=== PATIENT | male | born 1930 | race Caucasian/White ===

== ENCOUNTER 2019-03-25 08:39 | Observation (INO) | payer MEDICARE ==
[~2019-03-25] VITALS: Ht 180.3 cm; Wt 79.4 kg
--- NOTE | 2019-03-25 08:42 | NUR ---
PT ARRIVED INTO ER ROOM 3 VIA [facility]. PT PLACED ON CONTACT ISOLATION FOR C-DIF. PT IS AWAKE AND ALERT, FOLLOWS COMMMANDS. NON-VERBAL BUT HE ANSWERS SOME QUESTIONS APPROPRIATELY BY NODDING OR IF YOU CAN READ HIS LIPS. HE IS ORIENTED X 1-2. HE MOUTHS HIS NAME AND SEEMS TO KNOW THAT HE IS AT THE HOSPITAL. 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 RIGHT ARM SEVERELY CONTRACTED AND 4+ PITTING EDEMA. BILATERAL UE PITTING EDEMA AND BILATERL FEET EDEMA. MULTIPLE WOUNDS NOTED ALL OVER BODY ON ARRIVAL AND SEVERAL DRESSINGS ALL OVER BODY. SKIN TEAR ACROSS MID-UPPER BACK, LARGE SKIN TEAR TO LEFT UPPER ARM THAT HAS A 4X4 DRESSING ON IT. MULTIPLE BRUISES TO ENTIRE BODY AND SEVERAL OTHER SKIN TEARS NOTED TO BOTH ARMS. PT BRUISES VERY EASILY. HIS SKIN IS PAPER THIN AND JUST THE SLIGHTEST TOUCH BRUISES HIM. THERE IS AN ULCER ON THE SACRUM COVERED WITH AN ABD PAD AND TAPE. NOT SURE IF IT IS STAGEABLE OR NOT. I WOULD SAY STAGE II BUT IT HAS YELLOW SLOUGH AND HAS A SMALL AMT OF YELLOWISH DRAINAGE. WILL SPEAK WITH ERP ABOUT NEED FOR WOUND CARE CONSULT.
--- NOTE | 2019-03-25 09:00 | NUR ---
UNABLE TO OBTAIN A TEMP BY ANY METHOD RIGHT NOW. TRIED ORAL, AXILLARY AND RECTAL. NONE WOULD GIVE A READING
[2019-03-25] MEDS ORDERED: SODIUM CHLORIDE 0.9% 1000ML 1,000 ML IV STA (09:33)
[2019-03-25] MEDS ORDERED: PANTOPRAZOLE 40 MG 10ML VIAL IV STA (09:33)
--- NOTE | 2019-03-25 11:15 | NUR ---
CT BROUGHT A SPORTS BOTTLE OF WATER AND ASKED ME TO GIVE AT LEAST HALF OF IT THROUGH THE PEG TUBE. I DID
--- NOTE | 2019-03-25 11:50 | NUR ---
CALLED RESP TO COME TRY TO OBTAIN A SPUTUM SAMPLE AND CHECK THE TRACH COLLAR AND OXYGEN
--- NOTE | 2019-03-25 12:00 | NUR ---
I WAS ABLE TO OBTAIN A VERY SMALL AMT OF STOOL AND RESP WAS ABLE TO OBTAIN A VERY SMALL AMOUNT OF SPUTUM FROM THE TRACH. I WILL SEND THEM BOTH TO LAB BUT NOT SURE IF EITHER IS A SUFFICIENT SAMPLE
--- NOTE | 2019-03-25 12:05 | NUR ---
CHECKED RECTAL TEMP X 3,
[2019-03-25 12:10] LABS: HEMATOCRIT 22.5 % (38.2-49.6); HEMOGLOBIN 7.5 g/dL (14.0-18.0); LYMPHOCYTES # (AUTO) 0.4 (1.0-3.2); MEAN CORPUSCULAR HEMOGLOBIN 30.9 pg (28-32); MEAN CORPUSCULAR HGB CONC 33.3 g/dL (31-35); MEAN CORPUSCULAR VOLUME 92.6 fL (81-99); MONOCYTES # (AUTO) 0.4 (0.2-0.8); MONOCYTES % 5.6 % (4.4-11.3); NEUTROPHILS # (AUTO) 6.4 (2.1-6.9); NEUTROPHILS % 87.2 % (38.7-80.0); PLATELET COUNT 85 x10e3/uL (140-360); RED BLOOD COUNT 2.43 x10e6/uL (4.3-5.7); RED CELL DISTRIBUTION WIDTH 21.5 % (11.7-14.4)
--- NOTE | 2019-03-25 12:15 | NUR ---
I NOTIFIED DR. AMBRIZ AT THE NURSES STATION THAT I WAS FINALLY ABLE TO OBTAIN A RECTAL TEMP. IT WAS LOW SO I RECHECKED IT 2 MORE TIMES TO MAKE SURE IT WAS ACCURATE. 3 READINGS WERE 89.3, 91.7, AND 90.8. EVER SINCE THE PATIENT ARRIVED I HAD BEEN UNABLE TO OBTAIN A TEMP BY ANY METHOD. I HAD TRIED NUMEROUS TIMES ORAL, AXILLARY, AND RECTAL BUT COULDNT EVER GET A READING. I ADDED MORE WARM BLANKETS
[2019-03-25 12:32] LABS: ALBUMIN 1.4 g/dL (3.5-5.0); ALBUMIN/GLOBULIN RATIO 0.5 (0.8-2.0); ANION GAP 13.1 mmol/L (8-16); CALCIUM 7.9 mg/dL (8.4-10.2); CREATININE, SERUM 2.43 mg/dL (0.72-1.25); POTASSIUM 5.1 mmol/L (3.5-5.1)
[2019-03-25] MEDS ORDERED: SODIUM CHLORIDE 0.9% 1000ML 1,000 ML ONE (12:34)
[2019-03-25] MEDS ORDERED: SODIUM CHLORIDE 0.9% 250ML 250 ML IV ONE (13:15)
--- NOTE | 2019-03-25 13:15 | NUR ---
SPOKE WITH SEED LABORATORY TECHNICIAN ABOUT POSSIBLY MOVING PT FROM ROOM 3 TO ROOM 5 BECAUSE HIS BLOOD PRESSURES ARE DROPPING AND HE IS HYPOTHERMIC. SHE SAID TO JUST LEAVE HIM WHERE HE IS FOR NOW AND APPLY TANJA HUGGER BLANKET AND CLOSELY MONITOR HIM FOR NOW TO SEE HOW HE DOES.
--- NOTE | 2019-03-25 14:16 | NUR ---
PATIENTS SON ARRIVED TO BEDSIDE. TOLD HIS FATHER HE IS WORKING ON GETTING HIM INTO HOME HOSPICE. TEMP 91.3 RECTAL. PLACED ON WARMING BLANKET
--- NOTE | 2019-03-25 14:33 | NUR ---
CONSULT FOR CASE MANAGEMENT COMPLETED. PATIENTS SON WANTS HIS FATHER TO GO HOME ON HOME HOSPICE
[2019-03-25] MEDS ORDERED: PANTOPRAZOLE 40 MG 10ML VIAL IV SCH (15:00)
[2019-03-25 15:04] LABS: BAND NEUTROPHILS % (MANUAL) 21 %; LYMPHOCYTES % (MANUAL) 5 % (19-48); MONOCYTES % (MANUAL) 3 % (3.4-9.0); NEUTROPHILS % (MANUAL) 71 % (40-74)
--- NOTE | 2019-03-25 15:15 | NUR ---
THE BLOOD HAS BEEN READY FOR TRANSFUSION BUT PATIENT HASN'T HAD A LINE TO TRANSFUSE. DR. AMBRIZ AT BEDSIDE NOW ATTEMPTING TO PLACE AN EJ
--- NOTE | 2019-03-25 15:30 | NUR ---
Morteza hdz in ED - 03/25/[address] AMBRIZ UNABLE TO OBTAIN THE EJ. PLAN NOW IS FOR CVC
--- NOTE | 2019-03-25 15:45 | NUR ---
OBTAINED CONSENT FROM SON FOR CVC AND BLOOD TRANSFUSION
--- NOTE | 2019-03-25 15:50 | NUR ---
Morteza hdz in EDM - 03/25/[address] AMBRIZ WAS UNSUCCESSFUL WITH EJ IV SO SHE JUST PLACED A RIGHT FEMORAL TRIPLE LUMEN CVC. FAMILY REMAIN AT BEDSIDE NOW
--- NOTE | 2019-03-25 16:10 | NUR ---
CORRECTION: CENTRAL LINE NOT PLACED YET. DR. AMBRIZ IS IN THE ROOM NOW PREPARING TO PLACE IT. I OBTAINED THE CONSENT FOR THE LINE.
--- NOTE | 2019-03-25 17:10 | NUR ---
AFTER AN HOUR AND WITH ULTRASOUND GUIDANCE MD WAS ABLE TO GET THE CENTRAL LINE PLACED TO THE RIGHT IJ. IT IS A TRIPLE LUMEN. DRESSING PLACED AND XRAY ORDERED.
[2019-03-25] MEDS ORDERED: SODIUM CHLORIDE 0.9% 250ML 250 ML ONE (17:24)
[2019-03-25] MEDS ORDERED: SODIUM CHLORIDE 0.9% 500ML 500 ML IV ONE (17:47)
--- NOTE | 2019-03-25 17:47 | NUR ---
NOTIFIED DR AMBRIZ BP 65/42, P 114 VERBAL ORDER: 500ML NS BOLUS ORDERED AT THIS TIME.
[2019-03-25] MEDS ORDERED: SODIUM CHLORIDE 0.9% 500ML 500 ML ONE (17:48)
--- NOTE | 2019-03-25 17:48 | NUR ---
OK TO USE CENTRAL LINE PER DR AMBRIZ.
--- NOTE | 2019-03-25 17:58 | Diagnostic Imaging Report ---
EXAMINATION: CHEST SINGLE (PORTABLE) INDICATION: ^CENTRAL LINE PLACEMENT COMPARISON: None FINDINGS: AP view TUBES and LINES: Interval placement of a right IJ central venous catheter. The tip appears to overlying the lower SVC on limited evaluation. Unchanged tracheostomy tube. LUNGS: Suboptimal evaluation of the lungs due to extreme rotation. Partial collapse of the right lung. Subsegmental atelectasis in the left lower lobe. PLEURA: There appears to be a moderate size right pneumothorax. Difficult to evaluate pneumothorax on the left. HEART AND MEDIASTINUM: The cardiomediastinal silhouette is unremarkable. BONES AND SOFT TISSUES: No acute osseous lesion. No subcutaneous air. UPPER ABDOMEN: No free air under the diaphragm. IMPRESSION: Interval placement of a right adjacent to venous catheter which is difficult to evaluate the location of the tip may be overlying the lower SVC. Moderate size right pneumothorax. Given the difficulty to assess for the central line location, consider CT chest without contrast for further evaluation. These findings were discussed with Dr. Francis on 03/25/2019 at 5:52PM. Signed by: Dr. Vivienne Noel M.D. on 03/25/2019 5:54 PM
--- NOTE | 2019-03-25 18:00 | NUR ---
FIRST UNIT OF BLOOD HUNG
[2019-03-25] MEDS ORDERED: CEFEPIME HCL 1 GM VIAL IV SCH (18:30)
[2019-03-25] MEDS ORDERED: VANCOMYCIN 1GM/NS 250 ML 250 ML IV SCH (18:30)
[2019-03-25] MEDS ORDERED: LIDOCAINE HCL 1% 2 ML AMP INJ ONE (18:30)
[2019-03-25] MEDS ORDERED: MORPHINE SULFATE 2 MG/ML SYR 1ML IV STA (18:30)
[2019-03-25] MEDS ORDERED: LIDOCAINE HCL 1% LOCAL INJ 20 ML VIAL INJ ONE (18:30)
[2019-03-25] MEDS ORDERED: LIDOCAINE HCL 1% LOCAL INJ 20 ML VIAL ONE (18:35)
--- NOTE | 2019-03-25 18:35 | NUR ---
THE CHEST TUBE WAS PLACED EMERGENTLY. FAMILY HAD ALREADY LEFT AND UNABLE TO CONTACT THEM.
--- NOTE | 2019-03-25 18:35 | NUR ---
AFTER THE CXR THAT WAS TAKEN AFTER THE CENTRAL LINE WAS PLACED THERE WAS A PNEUMOTHORAX AND ERP PLACED A CHEST TUBE TO THE RIGHT LATERAL CHEST. PT WAS MOANING DURING SO MORPHINE 4 MG VERBALLY ORDERED TO GIVE
[2019-03-25] MEDS ORDERED: CEFEPIME 1GM/NS 0.9% 50 ML 50 ML IV SCH (18:45)
[2019-03-25] MEDS ORDERED: MORPHINE SULFATE INJ 4 MG/ML INJ 1ML IV ONE (18:45)
--- NOTE | 2019-03-25 18:45 | NUR ---
POST CHEST TUBE XRAY DONE
--- NOTE | 2019-03-25 18:56 | NUR ---
XRAY RETURNED FOR SECOND ATTEMPT AT CHEST XRAY. WANTED ANOTHER
--- NOTE | 2019-03-25 19:02 | Diagnostic Imaging Report ---
EXAMINATION: CHEST SINGLE (PORTABLE) INDICATION: ^post COMPARISON: Chest radiograph 03/25/2019 5:13 PM FINDINGS: AP view TUBES and LINES: Stable tracheostomy tube. Right adjacent central venous catheter is poorly visualized. Interval placement of a right lower chest tube. LUNGS: Lungs are well inflated. Interval reexpansion of the right lung. Left lower lobe consolidation is unchanged. PLEURA: Resolved right pneumothorax. Possible residual right apical pneumothorax. HEART AND MEDIASTINUM: The cardiomediastinal silhouette is unremarkable. BONES AND SOFT TISSUES: No acute osseous lesion. Soft tissues are unremarkable. UPPER ABDOMEN: No free air under the diaphragm. IMPRESSION: Interval placement of a right-sided chest tube with resolution of the pneumothorax. Possible tiny right apical pneumothorax may be still present. Right IJ central venous catheter is not well visualized. Signed by: Dr. Vivienne Noel M.D. on 03/25/2019 6:58 PM
--- NOTE | 2019-03-25 19:15 | NUR ---
INCONTINENCE CARE GIVEN BY MYSELF, MARGARITA ORTIZ AND FLORENTIN. UPON REEVALUATION OF THE SACRAL WOUND IT IS UNSTAGABLE. PT TEMP IMPROVING. NOW 95.2
--- NOTE | 2019-03-25 19:50 | NUR ---
REPORT WAS GIVEN TO CHARGE NURSE FLORENTIN AT BEDSIDE AND SHE STATED THAT SHE WOULD CALL REPORT TO THE ICU AND GET THE PT MOVED
[2019-03-25 20:29] VITALS: BP 61/41
--- NOTE | 2019-03-25 20:29 | NUR ---
Received to 196 from ER. Placed on EKG, pulse ox & NBP for monitoring. Blood transfusion in progress. Within 30 min of arrived observed to have low sats and agonal respirations. Rapid response called at 2103. Before team arrived pt was observed to be very agonal breathing. Bagging started. Unable to feel pulses. Joselyn torres called at 2104. CPR started. See code sheet.
[2019-03-25 20:30] VITALS: BP 61/41
--- NOTE | 2019-03-25 20:30 | NUR ---
AFTER RECEIVING THE DOSE OF MORPHINE DURING THE PROCEDURE THE PT IS VERY LETHARGIC
[2019-03-25 20:45] VITALS: BP 69/54
[2019-03-25 21:00] VITALS: BP 53/20
[2019-03-25 21:15] VITALS: BP 86/33
--- NOTE | 2019-03-25 21:23 | NUR ---
Pronounced by Dr. Gomez.
--- NOTE | 2019-03-25 21:25 | NUR ---
Son notified. Requests [facility].
--- NOTE | 2019-03-25 22:00 | NUR ---
Son called back. Requests [facility] in [place]. Requests body to be donated to science.
--- NOTE | 2019-03-25 23:45 | NUR ---
To [facility].
== END 2019-03-25 21:23 | disposition expired ==
LOC: ER 08:39 → ERHOLD 13:07 → ICU 21:00
DX: A41.9 Sepsis, unspecified organism (principal); K92.2 Gastrointestinal hemorrhage, unspecified; J95.811 Postprocedural pneumothorax; I48.91 Unspecified atrial fibrillation; J96.90 Respiratory failure, unspecified, unspecified whether with hypoxia or hypercapnia; Z86.73 Personal history of transient ischemic attack (TIA), and cerebral infarction without residual deficits; R53.81 Other malaise; R13.10 Dysphagia, unspecified; I11.0 Hypertensive heart disease with heart failure; I50.30 Unspecified diastolic (congestive) heart failure; F03.90 Unspecified dementia, unspecified severity, without behavioral disturbance, psychotic disturbance, mood disturbance, and anxiety; Z93.0 Tracheostomy status; A04.72 Enterocolitis due to Clostridium difficile, not specified as recurrent; R65.21 Severe sepsis with septic shock; N17.9 Acute kidney failure, unspecified; Y83.8 Other surgical procedures as the cause of abnormal reaction of the patient, or of later complication, without mention of misadventure at the time of the procedure; Y92.238 Other place in hospital as the place of occurrence of the external cause; D62 Acute posthemorrhagic anemia
CPT/HCPCS: 32551; 36415; 36430; 36556; 71045; 80053; 82550; 82553; 82948; 84484; 85025; 85730; 86850; 86900; 86920; 87040; 87071; 87086; 87186; 87205; 92950; 99285; C9113; G0378; J2001; J2270; J7030; J7040; J7050; P9016